=== PATIENT | female | born 1985 | race Caucasian/White ===

== ENCOUNTER 2023-11-29 19:22 | Emergency (ER) | payer OTHER ==
[~2023-11-29] VITALS: Ht 154.9 cm; Wt 65.8 kg
[2023-11-29 19:29] VITALS: BP 110/69; PULSE 87; RESP 16; TEMP 97.7
[2023-11-29] MEDS ORDERED: KETOROLAC 60 MG/2 ML VIAL IM ONE (20:43)
[2023-11-29] MEDS: KETOROLAC 60 MG/2 ML VIAL IM ONE (20:47)
[2023-11-29 20:49] VITALS: BP 110/69; PULSE 87; RESP 16; TEMP 97.7
[2023-11-29] MEDS ORDERED: IBUP-2213 PO (20:54)
[2023-11-29] MEDS ORDERED: PRED20TA5 PO (20:54)
[2023-11-29] MEDS ORDERED: PSEU120T22 PO (20:54)
== END 2023-11-29 21:02 | disposition home or self-care (01) ==
LOC: MED 19:22
DX: J02.9 Acute pharyngitis, unspecified (principal)
CPT/HCPCS: 96372; 99283; J1885